=== PATIENT | female | born 1990 | race African-American/Black ===

== ENCOUNTER 2018-11-28 19:20 | Emergency (ER) | payer SELFPAY ==
[~2018-11-28] VITALS: Ht 170.2 cm; Wt 62.1 kg
[2018-11-28 19:32] VITALS: BP 104/71
--- NOTE | 2018-11-28 19:32 | NUR ---
ED Nurse Note: Pt arrived ED from home, c/o right eye discomfort after she washed her face today . Pt is A/O X4. vision of R/ 20/20, LT 20/25. waiting for orders.
[2018-11-28] MEDS ORDERED: OCUFLOX5 ML RIGHT EYE (19:57)
[2018-11-28 20:02] VITALS: BP 104/71
--- NOTE | 2018-11-28 20:02 | NUR ---
ER DISCHARGE NOTE: Patient is cleared to be discharged per Ana. Pt is aox4 on room air with stable vital signs. Pt was given dc and prescription instructions and was able to verbalize understanding. Pt's id band removed. Pt is able to ambulate with steady gait and took all belongings.
--- NOTE | 2018-11-30 07:31 | Emergency Room Report ---
History of Present Illness General Chief Complaint: Eye Problems Source: Patient Present Illness HPI 28-year-old female presents ED for evaluation. Waning of right eye pain for the last 3 days. States she noticed some discharge yesterday. Burning, 5 out of 10, nonradiating. Denies photophobia or blurry vision. Denies fevers or chills. Denies neck stiffness. denies sick contacts or recent travel. No other aggravating relieving factors. Denies any other associated symptoms Allergies: Coded Allergies: No Known Allergies (Unverified , 11/28/18) Patient History Past Medical History: none Past Surgical History: none Pertinent Family History: none Social History: Denies: smoking, alcohol use, drug use Last Menstrual Period: 11/21/18 Now: No Immunizations: UTD Reviewed Nursing Documentation: PMH: Agreed; PSxH: Agreed Nursing Documentation-PMH Past Medical History: No Stated History Review of Systems All Other Systems: negative except mentioned in HPI Physical Exam Vital Signs Date Time Temp Pulse Resp B/P (MAP) Pulse Ox O2 Delivery O2 Flow Rate FiO2 11/28/18 19:25 97.5 74 18 104/71 (82) 100 Room Air Sp02 EP Interpretation: reviewed, normal General Appearance: no apparent distress, alert, GCS 15, non-toxic Head: normocephalic Eyes: right eye Scleral Injection; left eye normal inspection, left eye EOMI; bilateral eye PERRL ENT: hearing grossly normal, normal pharynx, no angioedema, normal voice Neck: full range of motion, supple, no meningismus, supple/symm/no masses Respiratory: normal inspection Cardiovascular #1: normal inspection Gastrointestinal: normal inspection Rectal: deferred Genitourinary: no CVA tenderness Musculoskeletal: normal inspection Neurologic: alert, oriented x3, responsive, motor strength/tone normal, sensory intact, speech normal Psychiatric: normal inspection Skin: normal inspection Lymphatic: normal inspection Medical Decision Making Diagnostic Impression: Primary Impression: Conjunctivitis Qualified Codes: H10.9 - Unspecified conjunctivitis ER Course Hospital Course 28-year-old F presents to ED with R eye redness and green discharge Differential diagnoses include: conjunctivitis, traumatic iritis, foreign body, corneal abrasion Clinical course Patient placed on stretcher. After initial history, physical exam revealed a female no acute distress. There is injected conjunctiva R eye. Pupils equally reactive to light bilaterally. Scleral injection. No evidence of foreign body. Clinical findings consistent with conjunctivitis. Findings with patient. Safe for discharge with close outpatient follow-up. Will provide prescriptions for antibiotics. Also provide optho referrals Diagnosis - conjunctivitis Stable and discharged to home with prescription for Ocuflox. Followup with PMD/ Optho. Return to ED if symptoms recur or worsen Last Vital Signs Date Time Temp Pulse Resp B/P (MAP) Pulse Ox O2 Delivery O2 Flow Rate FiO2 11/28/18 20:02 97.5 83 18 104/71 100 Room Air Status: improved Disposition: HOME, SELF-CARE Condition: Stable Scripts Ofloxacin (OCUFLOX) 5 Ml Drops 1 DROP RIGHT EYE QID for 7 Days, ML Prov: Armaan Perez MD 11/28/18 Referrals: Baltazar Samuel MD, Maziar M.D. MD NOT CHOSEN IPA/,REFERRING (PCP) Patient Instructions: Bacterial Conjunctivitis, [id number] Armaan Perez MD Nov 30, 2018 07:31
== END 2018-11-28 20:15 | disposition home or self-care (01) ==
LOC: EMR 20:04
DX: H10.9 Unspecified conjunctivitis (principal)
CPT/HCPCS: 99282